=== PATIENT | male | born 1975 | race Caucasian/White ===

== ENCOUNTER 2017-02-04 16:58 | Emergency (ER) | payer OTHER ==
[~2017-02-04] VITALS: Ht 165.1 cm; Wt 70.4 kg
[2017-02-04] MEDS ORDERED: BUPIVACAINE 0.25% ONE (17:20)
[2017-02-04] MEDS ORDERED: LIDOCAINE 1%, 20ML ONE ×2 (17:21→18:20)
[2017-02-04] MEDS ORDERED: BUPIVACAINE/PF 0.25% INFIL ONE (17:30)
[2017-02-04] MEDS ORDERED: DIPHTHERIA-TETANUS ADULT 0.5ML IM-VACC ONE (17:30)
[2017-02-04] MEDS ORDERED: CEFAZOLIN 1,000 MG IM ONE (18:00)
[2017-02-04] MEDS ORDERED: CEFAZOLIN 1,000 MG ONE (18:01)
[2017-02-04 20:00] VITALS: BP 132/85
== END 2017-02-04 20:03 | disposition home or self-care (01) ==
LOC: ED 19:35
DX: S62.636B Displaced fracture of distal phalanx of right little finger, initial encounter for open fracture (principal); S62.634B Displaced fracture of distal phalanx of right ring finger, initial encounter for open fracture; S61.314A Laceration without foreign body of right ring finger with damage to nail, initial encounter; S61.216A Laceration without foreign body of right little finger without damage to nail, initial encounter; W23.0XXA Caught, crushed, jammed, or pinched between moving objects, initial encounter; Y93.89 Activity, other specified; Y92.89 Other specified places as the place of occurrence of the external cause; Y99.8 Other external cause status
CPT/HCPCS: 11740; 11760; 73140; 90471; 90714; 96372; 99285; J0690